=== PATIENT | female | born 1980 | race American Indian/Alaskan Native ===

== ENCOUNTER 2018-03-18 21:31 | Emergency (ER) | payer OTHER ==
--- NOTE | 2018-03-18 22:31 | Emergency Department Report ---
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 She was at work approximately 3 hours prior to arrival here, did not notice any external or foreign substance or powder on external portion of package, package was not wet or discolored, and she continued around the package. Approximately 20 minutes later, she began having sensation of slowing down of her symptoms, mild discoordination, difficulty organizing thoughts, partial upset stomach, no right nausea, no vomiting, was aware of her breathing, but was not short of breath, had not experienced any pain. She notified supervisor hydrochloric area, was instructed to take breaks, and after 15 minutes, return to work, but noticed that she was progressively more disorganized in her thinking, had trouble routing her packages, notified her supervisor hydrochloric area again, and comes for further evaluation. She has not felt feverish, not diaphoretic, has no pain anywhere, no vomiting, no diarrhea. She feels that after arrival here, symptoms have begun to subside steadily. She had recovered the package to show her supervisor hydrochloric area, and sniffed it again, but did not have significant prolonged exposure, and although supervisor hydrochloric area this point, he experienced no adverse effects. She has not been ill recently, but she is physically active, Performed yoga earlier in the day, but was not significantly exertional, had no aches or pains , no fever, and no respiratory symptoms and no secondary constitutional symptoms , including no prior fever chills or diaphoresis. Past medical history significant for PMS dysphoria, for which she has been taking Sarafem for better part of the year, and has not had any complications from this. She is not taken any other unusual medications, drink alcohol only occasionally, none today, uses no drugs recreationally, does not use marijuana. - Related Data Allergies Allergy/AdvReac Type Severity Reaction Status Date / Time diphenhydramine Allergy Hives Verified 03/18/18 21:55 ED Review of Systems ROS: Stated complaint: ANXIETY/DISORIENTATION Other details as noted in HPI Comment: All other systems reviewed and negative Constitutional: denies: chills, fever, malaise, weakness Eyes: denies: eye pain, vision change ENT: denies: ear pain, throat pain Respiratory: denies: cough, orthopnea, shortness of breath, wheezing Cardiovascular: denies: chest pain, dyspnea on exertion, edema, syncope, paroxysmal nocturnal dyspnea Endocrine: denies: excessive sweating, flushing, increased urine Gastrointestinal: nausea (questionable, mild stomach discomfort, no right sense of nausea). denies: vomiting, diarrhea Genitourinary: denies: urgency, dysuria, other (no discoloration of urine) Musculoskeletal: denies: back pain, joint swelling, arthralgia Skin: denies: rash, lesions, change in color Neurological: confusion (since of disorganization of thought). denies: headache , weakness, numbness, paresthesias Psychiatric: anxiety (since of worry about possible exposure, slight apprehension). denies: depression, auditory hallucinations, visual hallucinations, homicidal thoughts, suicidal thoughts Hematological/Lymphatic: denies: easy bleeding, easy bruising ED Past Medical Hx - Past Medical History Previous Medical History?: Yes Additional medical history: PMS dysphoria - Surgical History Past Surgical History?: No - Social History Smoking Status: Never Smoker Substance Use Type: None ED Physical Exam - General Limitations: No Limitations General appearance: alert, in no apparent distress, other (normal appearance, interacts normally, coherent thought process, gives explicit and detailed history without difficulty or apparent confusion) - Head Head exam: Present: atraumatic, normocephalic - Eye Eye exam: Present: PERRL, EOMI. Absent: scleral icterus, conjunctival injection , nystagmus - ENT ENT exam: Present: normal exam, mucous membranes moist - Neck Neck exam: Present: normal inspection, full ROM. Absent: tenderness, meningismus, lymphadenopathy - Respiratory Respiratory exam: Present: normal lung sounds bilaterally. Absent: respiratory distress, wheezes, rales, rhonchi - Cardiovascular Cardiovascular Exam: Present: regular rate, normal heart sounds. Absent: tachycardia, irregular rhythm, systolic murmur, diastolic murmur, gallop, JVD, S3, S4 - GI/Abdominal GI/Abdominal exam: Present: soft, normal bowel sounds. Absent: distended, tenderness - Rectal Rectal exam: Present: deferred - Extremities Exam Extremities exam: Present: normal inspection, full ROM. Absent: tenderness, pedal edema, calf tenderness - Neurological Exam Neurological exam: Present: alert, oriented X3, CN II-XII intact, normal gait, reflexes normal, other (full motor strength, equal strength all extremities, good balance, normal heel-to-toe, normal finger to nose). Absent: motor sensory deficit - Psychiatric Psychiatric exam: Present: normal affect, normal mood, anxious (very slightly anxious when recalling history, but otherwise calm). Absent: manic, homicidal ideation, suicidal ideation - Skin Skin exam: Present: warm, dry, intact, normal color. Absent: rash, cyanosis, diaphoretic, erythema, petechiae, ecchymosis ED Course Vital Signs 03/18/18 03/18/18 03/18/18 21:55 23:15 23:45 Temperature 36.9 C Pulse Rate 75 82 83 Respiratory 16 16 Rate Blood Pressure 124/55 Blood Pressure 138/80 137/71 [Left] O2 Sat by Pulse 96 98 99 Oximetry 03/19/18 03/19/18 00:00 00:29 Temperature Pulse Rate 77 80 Respiratory 16 16 Rate Blood Pressure Blood Pressure 133/74 137/80 [Left] O2 Sat by Pulse 98 99 Oximetry - Reevaluation(s) Reevaluation #1: 03/19/18 00:45 Patient stable on examination, symptoms have largely resolved, vital signs are stable, laboratory evaluation is negative. Patient stable for discharge home, reassured, recommended to rest, but may resume regular activities as she is ready. ED Medical Decision Making - Lab Data Result diagrams: 03/18/18 23:26 03/18/18 23:26 - Medical Decision Making Patient has likely had a noxious fume exposure, which caused secondary reaction , possibly vagal, but she has negative evaluation here, lab work as evaluation, lungs are clear, there is no findings of any significant exposure with any inflammation, or secondary physical effects. Critical Care Time: No Critical care attestation.: If time is entered above; I have spent that time in minutes in the direct care of this critically ill patient, excluding procedure time. ED Disposition Clinical Impression: History of exposure to noxious chemical Disposition: DC-01 TO HOME OR SELFCARE Is pt being admited?: No Does the pt Need Aspirin: No Condition: Stable Additional Instructions: Your symptoms are likely due to a noxious reaction to exposure to fumes, but physical examination, laboratory evaluation is negative, there is no signs of inflammation, metabolic abnormality, or secondary signs of muscle organ damage. Symptoms usually resolve spontaneously, but as long as you avoid subsequent exposure, and we recommend general rest, eating well, hydrating well over the next day, and if you remain symptom free, he may return to work. You may return any time for repeat examination if you have any repeat exposures , or worrisome new symptoms. Referrals: PRIMARY CARE, [Primary Care Provider] - 3-5 Days Forms: Work/School Release Form(ED) Time of Disposition: 00:49
[2018-03-18 23:21] LABS: Mucus,Urine FEW /HPF
[2018-03-18 23:22] LABS: Bilirubin,Urine NEG (Negative); Blood,Urine NEG (Negative); Color,Urine Yellow (Yellow); Protein,Urine <15 mg/dL mg/dL (Negative); Urobilinogen,Urine < 2.0 mg/dL (<2.0)
[2018-03-18 23:49] LABS: Basophils # (Auto) 0.1 K/mm3 (0.0-0.1); Basophils % (Auto) 0.7 % (0.0-1.8); Eosinophils # (Auto) 0.1 K/mm3 (0.0-0.4); Eosinophils % (Auto) 1.6 % (0.0-4.3); Hematocrit 39.6 % (30.3-42.9); Hemoglobin 13.2 gm/dl (10.1-14.3); Lymphocytes # (Auto) 2.8 K/mm3 (1.2-5.4); Lymphocytes % (Auto) 33.3 % (13.4-35.0); Mean Corpuscular HGB Conc 33 % (30-34); Mean Corpuscular Hemoglobin 30 pg (28-32); Mean Corpuscular Volume 91 fl (79-97); Monocytes # (Auto) 0.7 K/mm3 (0.0-0.8); Monocytes % (Auto) 8.6 % (0.0-7.3); Platelet Count 227 K/mm3 (140-440); Red Blood Count 4.35 M/mm3 (3.65-5.03); Red Cell Distribution Width 13.5 % (13.2-15.2)
[2018-03-19 00:10] LABS: BUN/Creatinine Ratio 12; Blood Urea Nitrogen 7 mg/dL (7-17); Calcium 9.7 mg/dL (8.4-10.2); Hemolysis Index 12
[2018-03-19 01:06] VITALS: BP 135/76
== END 2018-03-19 01:07 | disposition home or self-care (01) ==
LOC: ED 21:31
DX: Z77.098 Contact with and (suspected) exposure to other hazardous, chiefly nonmedicinal, chemicals (principal); Z88.8 Allergy status to other drugs, medicaments and biological substances
CPT/HCPCS: 36415; 80048; 81001; 85025; 99283